=== PATIENT | male | born 1990 ===

== ENCOUNTER 2021-01-07 11:11 | Emergency (ER) | payer BC ==
[~2021-01-07] VITALS: Ht 172.7 cm; Wt 83.9 kg
[2021-01-07] MEDS ORDERED: INTESTINEX680 M1 PO (13:21)
[2021-01-07] MEDS ORDERED: AMOX-CLAV 875-1 EACH PO (13:21)
[2021-01-07] MEDS ORDERED: MUPIROCIN15 GM TOP (13:21)
== END 2021-01-07 13:24 | disposition home or self-care (01) ==
LOC: ER 11:11
DX: L03.115 Cellulitis of right lower limb (principal); L81.8 Other specified disorders of pigmentation; A49.01 Methicillin susceptible Staphylococcus aureus infection, unspecified site